=== PATIENT | male | born 1945 | race Caucasian/White ===

== ENCOUNTER 2017-06-14 06:08 | Day surgery (SDC) | payer OTHER ==
[~2017-06-14] VITALS: Ht 180.3 cm; Wt 131.0 kg
[~2017-06-14 06:08] MED LIST: ASPI-99 PO; ATOR40TA49 PO; CHOL1CAP6 PO; FURO1TAB93 PO; GABA100C4 PO; KLOR20TA6 PO; LEVEINJ SQ; LISI2.5T3 PO; METO100T9 PO; NOVOINJ3 SQ; OCUVTAB PO; OMEG100037 PO; OXYB5TAB PO; [UNRECOGNIZED DRUG - CODE] PO
[2017-06-14] MEDS ORDERED: IOHEXOL 350 MG/ML 50 ML BTL (for Cath Lab) OTHER ONE (06:09)
[2017-06-14] MEDS ORDERED: IOHEXOL 350 MG/ML 100 ML BTL (for Cath Lab) OTHER ONE (06:09)
[2017-06-14 06:47] VITALS: BP 141/89; PULSE 60; RESP 18; TEMP 98.4; O2SAT 97
[2017-06-14] MEDS ORDERED: KLOR10TA PO (06:52)
[2017-06-14] MEDS ORDERED: FURO40TA PO (06:52)
[2017-06-14] MEDS ORDERED: ATOR40TA16 PO (06:52)
[2017-06-14] MEDS ORDERED: GABA300C5 PO (06:52)
[2017-06-14] MEDS ORDERED: TRAZ50TA12 PO (06:52)
[2017-06-14] MEDS ORDERED: APIX5TAB PO (06:52)
[2017-06-14] MEDS ORDERED: GLIP1TAB49 PO (06:52)
[2017-06-14] MEDS ORDERED: METO1TAB9 PO (06:52)
[2017-06-14] MEDS ORDERED: OXYB5TAB8 PO (06:52)
[2017-06-14 07:12] LABS: AUTOMATED NEUTROPHIL # 5.2 TH/MM3 (1.8-7.7); BASOPHIL % 0.6 % (0.0-2.0); EOSINOPHIL # 0.1 TH/MM3 (0-0.4); EOSINOPHIL % 1.4 % (0.0-4.0); HEMOGLOBIN 16.1 GM/DL (13.0-17.0); LYMPH % 22.6 % (9.0-44.0); LYMPHOCYTE # 1.7 TH/MM3 (1.0-4.8); MEAN CELL VOLUME 92.7 FL (80.0-100.0); MEAN CORPUSCULAR HEMOGLOBIN 32.5 PG (27.0-34.0); MEAN CORPUSCULAR HGB CONC 35.1 % (32.0-36.0); MEAN PLATELET VOLUME 9.3 FL (7.0-11.0); MONO % 8.6 % (0.0-8.0); MONOCYTE # 0.7 TH/MM3 (0-0.9); NEUT % 66.8 % (16.0-70.0); PLATELET COUNT 154 TH/MM3 (150-450); RED BLOOD COUNT 4.96 MIL/MM3 (4.50-5.90); RED CELL DISTRIBUTION WIDTH 13.9 % (11.6-17.2); WHITE BLOOD COUNT 7.7 TH/MM3 (4.0-11.0)
[2017-06-14 07:22] LABS: INTERNATIONAL NORMALIZED RATIO 1.1 RATIO; PROTHROMBIN TIME - PATIENT 10.8 SEC (9.8-11.6)
[2017-06-14 07:38] LABS: BICARBONATE 23.6 MEQ/L (21.0-32.0); CALCIUM 8.9 MG/DL (8.5-10.1); CREATININE 1.49 MG/DL (0.60-1.30)
[2017-06-14] MEDS ORDERED: HEPARIN-NS/PF INJ 1,000 ML ONE (08:35)
[2017-06-14] MEDS ORDERED: MIDAZOLAM HCL 2 MG/2 ML VIAL ONE (08:36)
--- NOTE | 2017-06-14 10:28 | CATHPROC ---
[facility] HIS Report Study Information Study Number Admission Scheduled Start Study Start [id number] Jun 14 2017 6:08AM 06/14/2017 Jun 14 2017 6:48AM [place] [facility] Cardiac Catheterization Admit Source Facility Department Other [facility] - Dam Tender Assistant Physician and Clinical Staff Initial Serge Marrero Head Animal Keeper Florina Plata RN Head Animal Keeper Ketty Zhou BSN Recorder Shira Barba ,RT(R) Recorder Maris Gates,RT(R) (BS) Scrub Kaylah Nascimento,RT(R) Procedures Performed Procedure Location (Site) Vessel Name Coronary Angiograms LCA Left Coronary Coronary Angiograms RCA Right Coronary Coronary Angiograms PEREZ Graft Left Coronary Coronary Angiograms SVG-OM CIRC L Heart Cath Wire insertion Fem Art (right) Femoral Art Equipment Time Tailing Hand Description Size Mfg Part Number Used/Scraped TRANSDUCER, TRUWAVE [id number] 08:48 ETIENNE PEREZ * Used W/STOCKCOCK *[id number] INTRODUCER SET, 08:48 [employer] FR 5 [id number] *[id number] Used MICROPUNCTURE, STIFFENED INTRODUCER SET, 08:52 [employer] FR 5 [id number] *[id number] Used MICROPUNCTURE, STIFFENED [id number] *[id number] 534-545T *[id number] 534-560T *[id number] 534-520T *[id number] 534-552S *[id number] 08:48 [employer] PACK, CCL CUSTOM * Used *[id number] 08:48 Chug MEDICAL WIRE, 3MMJ .035 180CM 180CM Used *[id number] 08:48 NAMIC MANIFOLD, 4 PORT * Used *[id number] 08:48 [employer]COMED OMNIPAQUE, 350 MG, 150ML 150ML [id number] Used 09:40 [employer]COMED OMNIPAQUE, 350 MG, 50ML 50ML [id number] Used 09:54 [employer]COMED OMNIPAQUE, 350 MG, 50ML 50ML [id number] Used [id number] 08:48 [employer]ST[employer] MED[employer] BLANKET,WARM AIR CCL * Used *[id number] 08:48 TERUMO MEDICAL SHEATH, FR5 TERUMO (10CM) FR 5 Used *[id number] Equipment Model, Serial, Lot Number and Expiration Data Description Model Number Serial Number Lot Number Expiration Date INTRODUCER SET, [id number] 03-05-2020 MICROPUNCTURE, STIFFENED History: Current Medications Medication Dosage/Unit Route Frequency Last Date/Time Taken LISINOPRIL Statins (any) Beta Regan ELIQUIS History: Allergies Allergy Reaction cefazolin Hives vancomycin Hives History: Risk Factors Family History of Hypertension Dyslipidemia Previous AL Previous Heart Failure Premature CAD Yes Yes Yes No Yes Prior Valve Prior PCI Prior CABG Prior CABGDate Surgery No No Yes 05/21/2012 Cerebrovascular Peripheral Artery Chronic Lung On Dialysis Diabetes Diabetes Therapy Disease Disease Disease No Yes No No Yes Oral History: Stress Tests Stress or Imaging Studies Performed Yes Standard Exercise Stress Test No Stress Echo No Stress Test SPECT Yes Stress Test CMR No Cardiac CTA Coronary Calcium Score No No History: Other Current Smoker Method Quit Packs a Day Years Used Pack Years No Cigarettes 5 Years Ago 2 50 100 Labs Hgb (g/dl) Hct (%) WBC (l/cumm) Platelets (thousands) 11.60-17.00 35.00-51.00 4.00-11.00 150.00-450.00 16.1 46 7.7 154 Glucose (mg/dl) BUN (mg/dl) Creatinine (mg/dl) BUN:Creatinine (1:x) 74.00-106.00 7.00-18.00 0.50-1.30 10.00-20.00 159 47 1.4 33.6 Na (meq/l) K (meq/l) 136.00-145.00 3.50-5.10 138 4.3 INR (PTT:PT) 0.90-1.10 1.1 CPK-MB (ng/ML) 0.50-3.60 Not Drawn Medication Medication Total Dose (Bolus/Oral) Medication Total Dosage/Unit 1% XYLOCAINE 20 mL FENTANYL 25 mcg VERSED 0.5 mg Medications (Bolus/Oral) Medication Time Given Dosage/Unit Administered By Reason VERSED 06/14/2017 9:06:51 AM 0.5 mg Ketty Zhou 0.5 mg VERSED given in lab by Ketty Zhou BSN in Left Hand via Peripheral IV. FENTANYL 06/14/2017 9:06:59 AM 25 mcg Ketty Zhou 25 mcg FENTANYL given in lab by Ketty Zhou BSN in Left Hand via Peripheral IV. Ordered by Serge Vu 1% XYLOCAINE 06/14/2017 9:07:19 AM 20 mL Serge Zhao 20 mL 1% XYLOCAINE given in lab by Serge Zhao in Right Groin via Subcutaneous. Ordered by Serge Campos Medication (Drip) Medication Time Given Dosage/Unit Concentration/Unit Diluent (ml) Solution IV Solutions 06/14/2017 8:30:36 AM 50 mL (IV) NaCl .9 Patient arrived on IV Solutions in Left Hand via Peripheral IV. Pump/Drip Flow using NaCl .9. Initial Case Assessment Cardiovascular HR Rhythm NIBP Chest Pain 50 sr 111/91 0 Edema Present Skin color Skin Mild Normal Warm Dry Circulatory - Right Pulses Dorsalis Pedis Posterior Tibial Femoral d 2 d Scale (0,1,2,3,4,d) Circulatory - Left Pulses Dorsalis Pedis Posterior Tibial Femoral 1 1 Scale (0,1,2,3,4,d) Neurological State Oriented to time-place- Alert Moves all extremities person Respiration - General Respiration Rate SpO2 (%) (B/min) 17 99 Chronological Log Time Study Chronological Log 8:29:00 Patient arrived via Bed. 8:29:00 Patient Name, D.O.B, / Armband Verified By R.N. 8:30:11 Consent signed by the physician and the patient and verified by the Dam Tender Assistant staff. 8:30:12 Pre-op and post- op instructions given; patient acknowledges understanding of instructions. 8:30:13 Verbal Stimulation=2 Physical Stimulation=2 Airway=2 Respiration=2 TOTAL=8. (0=absent, 1=li mited, 2=present) 8:30:28 Patient has been NPO for More than 6Hrs. 8:30:30 Skin Breakdown- Back cyst with pressure dressing 8:30:31 Patient Warmer Placed on the Table. 8:30:33 Lety Prominences Protected 8:30:34 A # 20 IV was noted in the Hand (left). Grade = 0 8:30:36 Patient arrived on IV Solutions in Left Hand via Peripheral IV. Pump/Drip Flow using NaCl . 9. 8:30:38 History and physical on the chart or being dictated. Assessment: Initial Case, HR=50 BPM, Rhythm=sr, HDZH=935/91 mmhg, Chest Pain=0, Edema=Mild, Col or=Normal, Skin = Warm, Dry Right Pulses: Duane Ped=d, Post Tib=2, Femoral=d 8:30:39 Left Pulses: Duane Ped=1, Femoral=1 Neurological: State=Alert, Ox3, URBANO Respiration: Resp=17 B/min, SpO2=99 % Vitals capture started with the following parameters, Patient=Adult, Interval=5 min, Initial Pr mrurty=717 mmHg, 8:35:28 Deflation Rate=5 mmHg, Cuff placed on Left Arm 8:36:01 HR=50 bpm, GKQB=654/91 mmhg, SpO2=99.0 %, Resp=20 B/min, Pain=0, Perea=2 8:41:41 HR=64 bpm, CNNN=129/84 mmhg, SpO2=97.0 %, Resp=20 B/min, Pain=0, Perea=2 8:46:14 HR=61 bpm, RALC=120/76 mmhg, SpO2=96.0 %, Resp=28 B/min, Pain=0, Perea=2 8:48:49 Bilateral groins prepped with 2% chlorhexidine, and draped after a 3 minute waiting time. 8:51:45 HR=63 bpm, OFTY=854/78 mmhg, SpO2=97.0 %, Resp=34 B/min 8:54:00 MD paged 8:55:51 Pressure channel 1 zeroed. 8:57:01 HR=68 bpm, FEUX=668/85 mmhg, SpO2=98.0 %, Resp=29 B/min, Pain=0, Perea=2 8:57:57 MD responded 8:59:19 MD arrived. 9:00:57 Reference ECG taken 9:01:15 HR=61 bpm, OFZT=003/80 mmhg, SpO2=99.0 %, Resp=25 B/min, Pain=0, Perea=2 Time Out. Correct patient, correct procedure, correct physician, power injector not loaded with contrast with surgical 9:05:15 team present. Time Out Concurred by MD and individual staff in procedure. :05:41 Case Start 9:06:14 HR=67 bpm, QMMO=326/86 mmhg, SpO2=94.0 %, Resp=19 B/min, Pain=0, Perea=2 9:06:51 0.5 mg VERSED given in lab by Ketty Zhou BSN in Left Hand via Peripheral IV. 25 mcg FENTANYL given in lab by Ketty Zhou BSN in Left Hand via Peripheral IV. Ordered by Pavel, 9:06:59 Serge Mayorga. 20 mL 1% XYLOCAINE given in lab by Serge Zhao in Right Groin via Subcutaneous. Ordered by Pavel, 9:07:19 Serge Mayorga. 9:09:25 Access site was Right Femoral Artery. A INTRODUCER SET, MICROPUNCTURE, STIFFENED FR 5 was advanced into the Fem Art (right) using the 9:09:33 Percutaneous technique. A SHEATH, FR5 TERUMO (10CM) FR 5 was exchanged in the Fem Art (right). This was necessary in ord er to 9:09:50 accomodate a larger catheter. 9:11:13 HR=68 bpm, MFWI=160/83 mmhg, SpO2=91.0 %, Resp=30 B/min, Pain=0, Perea=2 A 3DRC INFINITI CATHETER FR 5 was advanced over a wire. OMNIPAQUE, 350 MG, 150ML 150ML was used for 9:12:07 injections. Recorded Pressure: Ao, HR=61, Condition=Condition 1 9:13:53 (Aorta) Ao 129/70/93 9:16:10 HR=64 bpm, BCKP=084/81 mmhg, SpO2=95.0 %, Resp=30 B/min, Pain=0, Perea=2 9:20:41 The SVG-OM was injected and visualized at various angles. OMNIPAQUE, 350 MG, 150ML 150ML use d. 9:21:48 HR=67 bpm, GRSZ=351/81 mmhg, SpO2=96.0 %, Resp=26 B/min, Pain=0, Perea=2 After removing the current catheter a JL 4.0 INFINITI CATHETER FR 5 was advanced over a WIRE, 3M MJ .035 180CM 9:23:00 180CM. 9:24:32 The LCA was injected and visualized at various angles. OMNIPAQUE, 350 MG, 150ML 150ML used. 9:26:12 HR=71 bpm, UCBU=023/85 mmhg, SpO2=96.0 %, Resp=30 B/min, Pain=0, Perea=2 After removing the current catheter a PIGTAIL ANG. INFINITI CATHETER FR 5 was advanced over a WI RE, 3MMJ .035 9:27:00 180CM 180CM. Recorded Pressure: LV, HR=74, Condition=Condition 1 9:29:33 (Left Ventricle) LV 136/4/12 Recorded Pressure: LV, Ao, HR=72, Condition=Condition 1 9:29:46 (Left Ventricle) LV 140/5/12, (Aorta) Ao 126/69/93 9:30:28 Catheter was removed A AL 1 INFINITI CATHETER FR 5 was advanced over a wire. OMNIPAQUE, 350 MG, 150ML 150ML was used for 9:30:32 injections. 9:31:13 HR=69 bpm, BQUJ=505/88 mmhg, SpO2=96.0 %, Resp=21 B/min, Pain=0, Perea=2 9:34:25 The RCA was injected and visualized at various angles. OMNIPAQUE, 350 MG, 150ML 150ML used. After removing the current catheter a CORTEZ INFINITI CATHETER FR 5 was advanced over a WIRE, 3MMJ .035 180CM 9:34:34 180CM. 9:36:18 HR=64 bpm, XIPP=038/79 mmhg, SpO2=98.0 %, Resp=24 B/min, Pain=0, Perea=2 9:41:17 HR=67 bpm, ZIEK=210/76 mmhg, SpO2=95.0 %, Resp=26 B/min, Pain=0, Perea=2 9:41:34 A WIRE, 3MMJ .035 180CM 180CM was inserted via Fem Art (right). 9:41:43 Wire removed 9:46:18 HR=65 bpm, OYIE=632/77 mmhg, SpO2=96.0 %, Resp=31 B/min, Pain=0, Perea=2 9:46:27 The PEREZ Graft was injected and visualized at various angles. OMNIPAQUE, 350 MG, 150ML 150ML used. 9:47:38 NIBP STAT measurement started. 9:48:17 HR=65 bpm, OTYS=690/80 mmhg, SpO2=95.0 %, Resp=28 B/min, Pain=0, Perea=2 9:49:26 NIBP STAT measurement started. 9:50:08 HR=64 bpm, KZWC=668/78 mmhg, SpO2=96.0 %, Resp=29 B/min, Pain=0, Perea=2 9:51:17 HR=64 bpm, ZARW=891/77 mmhg, SpO2=97.0 %, Resp=26 B/min, Pain=0, Perea=2 9:56:21 HR=64 bpm, LVCW=287/76 mmhg, SpO2=96.0 %, Resp=29 B/min, Pain=0, Perea=2 10:01:18 HR=64 bpm, TRUJ=930/79 mmhg, SpO2=97 %, Resp=30 B/min, Pain=0, Perea=2 10:03:22 Catheter was removed 10:03:29 Case End 10:03:37 Catheter(s) removed without difficulty 10:03:46 No case complications noted. 10:03:48 Cine recording checked. 10:03:49 Bedside Report will be given. 10:03:53 Contrast Scanned 10:04:05 A Left Heart Cath was performed. 10:04:38 Sheath removed; pressure applied to access site. 10:06:19 HR=67 bpm, JFZC=021/85 mmhg, SpO2=97.0 %, Resp=31 B/min, Pain=0, Perea=2 10:11:16 HR=61 bpm, KTKQ=379/78 mmhg, SpO2=97.0 %, Resp=27 B/min, Pain=0, Perea=2 10:16:58 HR=59 bpm, TDSC=598/79 mmhg, SpO2=98.0 %, Resp=25 B/min, Pain=0, Perea=2 10:21:55 HR=63 bpm, SLPI=425/75 mmhg, Resp=23 B/min, Pain=0, Perea=2 10:22:59 Vitals capture stopped. 10:23:01 Sterile dressing applied to site 10:26:39 Patient moved to stretcher End Study - Contrast Media Used In Study Contrast Total Opened (mL) Total Used (mL) Total Wasted (mL) Omnipaque 140 140 0 End Study - Maximum Contrast Load Max Contrast Load (mL) 467.9 End Study - Radiation Exposure Fluoro Time (minutes) 21.6 End Study - Patient Disposition Complications Transferred To Interventional Outcome No Dam Tender Assistant Holding No attempt made
[2017-06-14] MEDS ORDERED: SODIUM CHLOR 0.9% 1000 ML INJ 1,000 ML IV SCH (10:37)
[2017-06-14] MEDS ORDERED: MISC INFORMATION XX ONE (10:45)
[2017-06-14] MEDS ORDERED: ONDANSETRON HCL 4 MG/2 ML VIAL IV PUSH PRN (10:45)
--- NOTE | 2017-06-14 10:51 | MA ---
cc: SERGE HENDRIX DO DATE 06/14/2017 PROCEDURE Left heart catheterization, coronary angiogram, bypass angiogram, moderate sedation 55 minutes. PREPROCEDURE DIAGNOSIS Abnormal stress test. POSTPROCEDURE DIAGNOSIS Multivessel coronary artery disease, history of CABG x4 (1/4 grafts patent). MEDICATIONS Versed 0.5 mg., Fentanyl 25 mcg. CONTRAST 140 cc FLUOROSCOPY 21.6 minutes ANESTHESIA Moderate sedation 55 minutes ESTIMATED BLOOD LOSS 10 cc PROCEDURAL SUMMARY Larry Jackson is a pleasant 72-year-old male who sees my partner, Dr. Rose in the office and was planning on undergoing a colonoscopy and so he had a stress test done. Stress test showed anterior infarct with possible mild to moderate britany-infarct ischemia. 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 He was recommended cardiac catheterization to define his coronary artery disease as he has not had further workup since his previous bypass. The risks, benefits and alternatives were explained to him and he consented as such. He was brought to lab and prepped in the usual sterile fashion. The right femoral artery was accessed using a modified Seldinger technique and placement of a 5-Czech sheath. This was easily aspirated and flushed. A 3DRC catheter was advanced to the ascending aorta and used for selective angiography of the saphenous vein graft to the obtuse marginal. This was exchanged out for a JL-4 which was used for selective angiography of the left coronary artery system. This was then exchanged out for an AL-1 which was used for selective angiography of the [place] right coronary artery. This was exchanged out for an angled pigtail which was used across the aortic valve for measurement of left ventricular pressure. This was pulled back across the aortic valve showing no significant gradient of aortic stenosis. This was exchanged out for an IM catheter which was used for nonselective angiography of the PEREZ to LAD. This was removed over a wire. Femoral sheath was removed with pressure held for hemostasis. The patient left the labor operator cardiovascularly stable. FINDINGS Left main normal sized vessel with 90% disease distally. It trifurcates into an LAD, circumflex and ramus. LAD 100% occluded in the proximal portion. It does give off one diagonal which has tandem lesions of 90%. There are ndfz-gb-eqni collaterals which fill the distal LAD as well as a few other small diagonals. Ramus, overall a small vessel with 90% disease in the ostial portion. There appears to be competitive flow throughout. Left circumflex overall a small vessel with a 90% lesion in the midportion. Distally it is 100% occluded with some rqtj-cl-ksnn collaterals filling the posterolateral branch. PEREZ to LAD as well as diagonal, nonselective shot shows an atretic PEREZ with minimal flow which appears occluded. SVG to the anterior and posterior lateral obtuse marginal, patent with flow into the anterior obtuse marginal. A portion of the graft that went to the posterior marginal appears occluded. The graft retrogradely fills into the circumflex which does fill some of the yzl-sx-bchsfn circumflex. RCA 100% occluded nondominant small vessel. LVEDP 12. IMPRESSIONS 1. Preoperative evaluation for possible colonoscopy. 2. Multivessel coronary artery disease with a history of CABG x4 (1/4 grafts patent) RECOMMENDATIONS 1. Mr. Jackson did have a stress test which showed mostly infarction with possible britany-infarct ischemia of the anterior wall. He overall has significant coronary artery disease, but does have collateralization to his vessels that are partially occluded. 2. Overall, I do not feel at this time that intervening on any of his vessels will help him extensively especially as he is asymptomatic at this time. 3. He will follow up with Dr. Rose for recommendations before his colonoscopy. 4. We will plan on continuing medical management of his coronary artery disease. Thank you for allowing me to see Larry Jackson. If there are any questions, please do not hesitate to call. Serge Hendrix DO VGP/DJL /10:25 AM /10:38 AM
--- NOTE | 2017-06-16 14:52 | EKG ---
Date Performed: 06/14/2017 Time Performed: 06:51:00 PTAGE: 72 years EKG: Sinus rhythm Normal axis Poor R-wave progression in the anterior precordium Nonspecific ST-T wave changes PREVIOUS TRACING : 12/02/2012 18.28 Largely unchanged from prior tracing. DOCTOR: Edward Coles Interpretating Date/Time 06/16/2017 14:49:56
== END 2017-06-14 17:02 | disposition home or self-care (01) ==
LOC: HCAT 06:08 → HDIC 06:11 → HCAT 17:02
PROVIDERS: ATTEND Nuclear Medicine Nuclear Cardiology
DX: I25.10 Atherosclerotic heart disease of native coronary artery without angina pectoris (principal); I11.9 Hypertensive heart disease without heart failure; J44.9 Chronic obstructive pulmonary disease, unspecified; I48.91 Unspecified atrial fibrillation; E11.9 Type 2 diabetes mellitus without complications; E66.01 Morbid (severe) obesity due to excess calories; Z68.41 Body mass index [BMI] 40.0-44.9, adult; Z95.810 Presence of automatic (implantable) cardiac defibrillator; Z95.1 Presence of aortocoronary bypass graft; Z79.84 Long term (current) use of oral hypoglycemic drugs
CPT/HCPCS: 80048; 85025; 85610; 85730; 93005; 93459; 99152; 99153; C1769; C1893; J1644; J2250; J3010; Q9967